=== PATIENT | female | born 1945 | race Caucasian/White ===

== ENCOUNTER → 2017-07-16 | Outpatient (CLI) | payer MEDICARE, BC ==
[~2017-07-16] MED LIST: CHEL50TA PO; ECASA81 PO; EZET1TAB8 PO; FLUO20CA12 PO; GABA300C5 PO; GLIM4TAB PO; MELO15TA20 PO; OXYB5TAB PO; PANT40TA3 PO; PERC5TAB12 PO; PRIM50TA5 PO; PROP40TA3 PO; ROSU1TAB8 PO; SITA50TA4 PO; SYNT88TA PO
[2017-07-16 10:11] LABS: AUTOMATED NEUTROPHIL # 5.8 TH/MM3 (1.8-7.7); BASOPHIL # 0.1 TH/MM3 (0-0.2); BASOPHIL % 0.9 % (0.0-2.0); EOSINOPHIL # 0.5 TH/MM3 (0-0.4); EOSINOPHIL % 5.6 % (0.0-4.0); HEMATOCRIT 37.2 % (35.0-46.0); HEMOGLOBIN 12.2 GM/DL (11.6-15.3); LYMPH % 22.9 % (9.0-44.0); MEAN CELL VOLUME 83.8 FL (80.0-100.0); MEAN CORPUSCULAR HEMOGLOBIN 27.6 PG (27.0-34.0); MEAN CORPUSCULAR HGB CONC 32.9 % (32.0-36.0); MEAN PLATELET VOLUME 9.3 FL (7.0-11.0); MONO % 5.5 % (0.0-8.0); MONOCYTE # 0.5 TH/MM3 (0-0.9); NEUT % 65.1 % (16.0-70.0); PLATELET COUNT 281 TH/MM3 (150-450); RED BLOOD COUNT 4.43 MIL/MM3 (4.00-5.30); RED CELL DISTRIBUTION WIDTH 13.5 % (11.6-17.2); WHITE BLOOD COUNT 8.9 TH/MM3 (4.0-11.0)
[2017-07-16 10:43] LABS: BICARBONATE 29.2 MEQ/L (21.0-32.0); CALCIUM 9.1 MG/DL (8.5-10.1); CREATININE 1.3 MG/DL (0.50-1.00)
[2017-07-16 11:45] LABS: BACTERIA, URINE RARE /hpf; BLOOD, URINE NEG (NEG); GLUCOSE,URINE TRACE mg/dL (NEG); HYALINE CAST, URINE 2 /lpf (RARE); KETONE, URINE NEG (NEG); MUCUS URINE FEW /lpf (OCC); NITRITE,URINE NEG (NEG); SQUAMOUS EPITHELIAL CELL URINE 6 /hpf (0-5); URINE COLOR YELLOW (YELLW/STRAW); URINE LEUKOCYTE ESTERASE MOD (NEG)
[2017-07-16 11:46] LABS: BILIRUBIN, URINE NEG (NEG)
--- NOTE | 2017-07-17 14:56 | EKG ---
Date Performed: 07/16/2017 Time Performed: 08:30:40 PTAGE: 71 years EKG: Sinus rhythm NORMAL ECG NO PREVIOUS TRACING DOCTOR: Norman Torre Interpretating Date/Time 07/17/2017 14:53:58
== END ==
LOC: CPRE 08:10
PROVIDERS: ATTEND Orthopaedic Surgery Orthopaedic Surgery of the Spine
DX: Z01.812 Encounter for preprocedural laboratory examination (principal); Z01.810 Encounter for preprocedural cardiovascular examination; M17.11 Unilateral primary osteoarthritis, right knee; R82.99 Other abnormal findings in urine
CPT/HCPCS: 36415; 80048; 81001; 85025; 87086; 93005

== ENCOUNTER 2017-07-26 09:59 | Inpatient (IN) | payer MEDICARE, BC ==
[~2017-07-26] VITALS: Ht 147.3 cm; Wt 88.5 kg
[~2017-07-26 09:59] MED LIST changes: -PERC5TAB12 PO
[2017-07-26] MEDS ORDERED: ceFAZolin 2 GM PREMIX 50 ML IV SCH (10:45)
[2017-07-26] MEDS ORDERED: CHLORHEXIDINE GLUCONATE 2 % 1 PACK (2 CLOTHS) TOPICAL PRN (10:45)
[2017-07-26] MEDS ORDERED: SODIUM CHLORID 0.9% 500 ML IV PRN (10:45)
[2017-07-26] MEDS ORDERED: LACTATED RINGER'S 1000 ML IV PRN (10:45)
[2017-07-26] MEDS ORDERED: METOPROLOL TARTRATE 25 MG TAB PO PRN (10:45)
[2017-07-26] MEDS ORDERED: CHLORHEXIDINE GLUCONATE 4% SOLN 120 ML BTL TOPICAL SCH (10:45)
[2017-07-26] MEDS ORDERED: POVIDONE IODINE 5% (ANTISEPSIS KIT) 4 APPLICATIONS EACH NARE PRN (10:45)
[2017-07-26] MEDS ORDERED: VANCOMYCIN 1000 MG/NS 250 ML (for <70 kg) IV SCH ×2 (10:45)
[2017-07-26] MEDS ORDERED: VANCOMYCIN 1 GM/200 ML PREMIX IV SCH (11:00)
[2017-07-26 11:12] VITALS: PULSE 68
[2017-07-26] MEDS ORDERED: PROPOFOL 200 MG/20 ML AMP IV ONE (12:00)
[2017-07-26] MEDS ORDERED: ePHEDrine/NS 25 MG/5 ML SYRINGE IV ONE (12:00)
[2017-07-26] MEDS ORDERED: LIDOCAINE HCL 1% PF 5 ML SYRINGE OTHER ONE (12:00)
[2017-07-26] MEDS ORDERED: SODIUM CHLORIDE 0.9% 20 ML VIAL IV ONE (12:00)
[2017-07-26] MEDS ORDERED: GENTAMICIN SULFATE 80 MG/2 ML VIAL ONE (12:14)
[2017-07-26] MEDS ORDERED: BUPIVACAINE LIPOSOME PF 1.3% 20 ML VIAL ONE (12:21)
[2017-07-26] MEDS ORDERED: MIDAZOLAM HCL 2 MG/2 ML VIAL ONE (12:21)
[2017-07-26] MEDS ORDERED: ROPIVACAINE PERI-ARTICULAR INJECTION. P-ARTICULR SCH ×5 (12:30)
[2017-07-26] MEDS ORDERED: PROPOFOL 500 MG/50 ML INJ 50 ML ONE (12:40)
[2017-07-26] MEDS ORDERED: BUPIVACAINE PF 0.75% DEX-WATER INJ 2 ML AMP ONE (12:41)
[2017-07-26] MEDS ORDERED: BUPIVACAINE HCL PF 0.5% 30 ML VIAL ONE (12:41)
[2017-07-26] MEDS ORDERED: KETAMINE HCL 500 MG/10 ML VIAL ONE (12:46)
--- NOTE | 2017-07-26 14:59 | HHI.PR ---
Immediate Post Op Note Procedure Date: Jul 26, 2017 Pre Op Diagnosis: R Knee OA Post Op Diagnosis: Same Surgeon: Lb Persaud MD Game Programer(s): Wendy Kim PA-C Procedure: R TKR Complications: None Specimen(s) removed: None Estimated blood loss: <50cc Anesthesia: General, Regional Block, Local Drains: Hemovac Patient to: PACU Patient Condition: Good Implant/Devices: SEE IMPLANT LOG (if applicable) Lb Persaud MD Jul 26, 2017 14:59
[2017-07-26] MEDS ORDERED: ALUMINUM/MAGNESIUM/SIMETH 30 ML CUP PO PRN (15:15)
[2017-07-26] MEDS ORDERED: oxyCODONE/ACETAMINOPHEN 5 MG/325 MG TAB PO PRN (15:15)
[2017-07-26] MEDS ORDERED: MORPHINE SULFATE 8 MG/ML INJ IV PUSH PRN (15:15)
[2017-07-26] MEDS ORDERED: ONDANSETRON HCL 4 MG/2 ML VIAL IVP PRN (15:15)
[2017-07-26] MEDS ORDERED: ZOLPIDEM TARTRATE 5 MG TAB PO PRN (15:15)
[2017-07-26] MEDS ORDERED: Post-op Orders (for Pharmacy) XX ONE (15:15)
[2017-07-26] MEDS ORDERED: WALKER WHEELS/F1 MIS (15:18)
--- NOTE | 2017-07-26 15:18 | HHI.FF ---
Face to Face Verification Diagnosis: (1) Osteoarthritis of right knee Physical Therapy Gait training, Transfer training, bed to chair Knee: Total knee, Protocol: Right, Full weight bearing Right LE Weight Bearing: WB as tolerated Left LE Weight Bearing: WB as tolerated Nursing RN: 3 days/week x 2 weeks Nursing: Dressing changes (clean incision with alcohol and apply dry sterile dressing ) Additional Instructions Aspirin 81 mg BID x 4 weeks DVT prop I have seen patient Ilda Toribio on 07/26/17. My clinical findings support the need for the requested home health care services because: High risk of falls I certify that my clinical findings support that this patient is homebound because: Post-op weakness Lb Persaud MD Jul 26, 2017 15:18
[2017-07-26] MEDS ORDERED: PERC5TAB12 PO (15:19)
--- NOTE | 2017-07-26 15:41 | MP ---
cc: Lb Persaud MD DATE OF OPERATION: 07/26/2017 Cc: Natalia Daly MD, FAX # PREOPERATIVE DIAGNOSIS: Right knee severe tricompartment osteoarthritis. POSTOPERATIVE DIAGNOSIS: Right knee severe tricompartment osteoarthritis. PROCEDURE PERFORMED: Right total knee arthroplasty - cemented Biomet Vanguard. SURGEON: Ernestine Persaud MD TROLLEY CAR MECHANIC: Wendy Kim PA-C TOURNIQUET TIME: 53 minutes at 250 mmHg. COMPLICATIONS: None. DRAIN: One. ANESTHESIA: General, local regional, adductor canal block, intraarticular block. PROCEDURE: My plumber's assistant, Wendy Kim PA-C, was present for the entire surgical case. She was medically necessary for the entire case because of the complexity of the case and to facilitate the performance of the procedure. The plumber's assistant at the back table was not of the skill case for this case to manipulate the instruments, e.g. multiple soft tissue retractors, trial implants and permanent implants. The patient was brought into the operating room, had satisfactory anesthesia by Dr. Isac Shaw of the Department of Anesthesia. The right lower extremity was prepped and draped in the usual sterile manner. The extremity was exsanguinated by elevation and the tourniquet inflated at 250 mmHg. Anterior exposure of the knee was made. Because of the patient's morbid obesity, great care was made to protect all pressure points. S paramedian capsulotomy was performed. The patient was found to have severe osteoarthritis involving all three compartments. The remaining portion of the medial and lateral meniscus were removed. The anterior cruciate ligament was removed. The posterior cruciate ligament was preserved. Prepatellar fat pad was surgically removed. Using the Biomet Vanguard total knee arthroplasty system, IM guide was used at the distal femur for a 7-degree valgus cut to accept a 62.5 mm femoral component. Extramedullary guide was used for the proximal tibia to accept a 75 mm. Undersurface of the patella was removed to accept a 31 mm 3-pronged patellar prosthesis. A 12 mm insert was found to have excellent stability and balance in both flexion and extension. All trial components were removed and preparation for cementing was made. The knee was injected with 100 mL of local anesthesia provided by the Department of Pharmacy. The knee was irrigated with copious amounts of sterile saline antibiotic solution. Two packages of [place] bone cement was used. First, the tibial component was cemented which is a 75 mm tibial component, followed by the femoral component which is a 62.5 mm femoral component. A 12 x 75 trial insert was used. All excess bone cement was removed. The undersurface of the patella was also cemented using a 31 mm, 3-pronged patellar prosthesis. All bone cement was removed from there. The bone cement was allowed to harden for 11 minutes up. A 12 x 75 mm polyethylene plastic component "lipped" was inserted. Appropriate locking mechanism was used to lock the polyethylene plastic onto the metallic tibial tray. The tourniquet was deflated. All bleeding was coagulated. The wound itself was dry. The wound was irrigated with 3000 mL of sterile saline antibiotic solution hooked up to an Autovac system. The wound was closed over a Hemovac drain. The fascia was closed with interrupted #2 Ti-Cron suture, the subcuticular layer with 0 Vicryl and 2-0 Vicryl and the skin was approximated with skin silvia. Sterile dressings were applied. The patient tolerated the procedure well and arrived in the recovery room in stable and satisfactory condition. MD TYSON Brown/AMADO , 02:56 PM , 03:40 PM
--- NOTE | 2017-07-26 15:49 | RADRPT ---
EXAM DATE/TIME: 07/26/2017 15:21 [facility] COMPARISON: No previous studies available for comparison. INDICATIONS : Post right knee arthroplasty MEDICAL HISTORY : Arthritis. SURGICAL HISTORY : None. ENCOUNTER: Initial ACUITY: 1 day PAIN SCORE: 0/10 LOCATION: Right Knee FINDINGS: Postsurgical features of right knee arthroplasty. Arthroplasty components are in anatomic alignment. No significant acute bony fracture. Surgical drain in place. Immediate postsurgical soft tissue featu res. CONCLUSION: 1. Status post right knee arthroplasty in anatomic alignment without significant acute bony fracture. Michele Thacker MD on July 26, 2017 at 15:47 Board Certified Radiologist. This report was verified electronically.
[2017-07-26] MEDS ORDERED: *ENALAPRILAT 1.25 MG/ML VIAL PERIprocedural Use ONLY ONE (15:50)
[2017-07-26] MEDS: LACTATED RINGER'S 1000 ML INJ 1,000 ML IV SCH (16:00)
[2017-07-26] MEDS ORDERED: cloNIDine HCL 0.1 MG TAB PO PRN (17:00)
--- NOTE | 2017-07-26 17:31 | PD.CONS ---
[facility] By Dr. Persaud Reason for Consult Medical management Primary Care Physician Natalia Daly MD Diagnoses: (1) Hypertension (2) Diabetes (3) Hyperlipidemia (4) CAD (coronary artery disease) (5) Osteoarthritis of right knee (6) Hypothyroidism History of Present Illness 71-year-old female with a medical history significant for CAD, diabetes, hypertension, hyperlipidemia admitted to the hospital for a total right knee replacement. The patient reports she has been struggling with osteoarthritis. She failed standard conservative treatment. She was getting to the point where it was very difficult for her to walk and she has been falling. We reviewed her medical history at length. She is seen in the recovery room. Currently reports feeling comfortable. Pain is controlled. No nausea or vomiting. Review of Systems Cardiovascular: DENIES: Chest pain, Palpitations Musculoskeletal: COMPLAINS OF: Joint pain Neurologic: COMPLAINS OF: Poor Balance Except as stated in HPI: all other systems reviewed are Neg Past Family Social History Allergies: Coded Allergies: hydrocodone (Verified Allergy, Unknown, ITCHING, 07/16/17) Past Medical History CAD, diabetes, hypertension, hyperlipidemia, osteoarthritis Past Surgical History Cholecystectomy Total right knee replacement Reported Medications Reported Meds & Active Scripts Active Percocet (Oxycodone-Acetaminophen) 5-325 mg Tab 1-2 Tab PO Q6H PRN Reported Rosuvastatin (Rosuvastatin Calcium) 20 Mg Tab 20 Mg PO DAILY Synthroid (Levothyroxine Sodium) 88 Mcg Tab 88 Mcg PO DAILY Fluoxetine (Fluoxetine HCl) 20 Mg Capsule 20 Mg PO BID Primidone 50 Mg Tab 50 Mg PO DAILY Meloxicam 15 Mg Tab 15 Mg PO DAILY Oxybutynin ER 24 HR (Oxybutynin Chloride) 5 Mg Tab 5 Mg PO DAILY Gabapentin 300 Mg Cap 300 Mg PO BID Pantoprazole (Pantoprazole Sodium) 40 Mg Tab 40 Mg PO DAILY Aspirin DR (Aspirin) 81 Mg Tabdr 81 Mg PO DAILY Ezetimibe 10 Mg Tab 10 Mg PO DAILY Glimepiride 4 Mg Tab 4 Mg PO BIDAC Janumet Xr (Sitagliptin-Metformin ER) 50-1,000 Mg Tab 1 Tab PO BID Propranolol (Propranolol HCl) 40 Mg Tab 40 Mg PO Q12HR Family History Reviewed and found to be noncontributory. Social History Patient does not use tobacco or alcohol. Physical Exam Vital Signs Vital Signs Date Time Temp Pulse Resp B/P (MAP) Pulse Ox O2 Delivery O2 Flow Rate FiO2 07/26/17 16:45 61 16 175/75 (108) 99 Nasal Cannula 2 07/26/17 16:30 64 16 168/68 (101) 99 Nasal Cannula 2 07/26/17 16:15 61 16 163/70 (101) 99 Nasal Cannula 2 07/26/17 16:00 60 16 162/72 (102) 99 Nasal Cannula 2 07/26/17 15:45 60 16 179/76 (110) 99 Nasal Cannula 2 07/26/17 15:15 63 18 176/77 (110) 98 Nasal Cannula 2 07/26/17 15:04 97.6 64 16 179/79 (112) 98 Nasal Cannula 3 07/26/17 11:12 68 07/26/17 11:12 94 Nasal Cannula 2 07/26/17 11:02 98.7 67 18 143/66 (91) 95 Physical Exam GENERAL: This is a well-nourished, well-developed patient, in no apparent distress. SKIN: No rashes, ecchymoses or lesions. Cool and dry. HEAD: Atraumatic. Normocephalic. No temporal or scalp tenderness. EYES: Pupils equal round and reactive. Extraocular motions intact. No scleral icterus. No injection or drainage. ENT: Nose without bleeding, purulent drainage or septal hematoma. Throat without erythema, tonsillar hypertrophy or exudate. Uvula midline. Airway patent. NECK: Trachea midline. No JVD or lymphadenopathy. Supple, nontender, no meningeal signs. CARDIOVASCULAR: Regular rate and rhythm without murmurs, gallops, or rubs. RESPIRATORY: Clear to auscultation. Breath sounds equal bilaterally. No wheezes , rales, or rhonchi. GASTROINTESTINAL: Abdomen soft, non-tender, nondistended. No hepato-splenomegaly , or palpable masses. No guarding. MUSCULOSKELETAL: Postop right knee. Immobilizer in place. Patient has a suction device in place with some blood in it. Neurovascularly intact distally at the toes. NEUROLOGICAL: Awake and alert. Cranial nerves II through XII intact. Motor and sensory grossly within normal limits. Five out of 5 muscle strength in all muscle groups. Normal speech. Imaging Last Impressions Knee X-Ray 07/26/17 1502 Signed Impressions: Service Date/Time: Wednesday, July 26, 2017 15:21 - CONCLUSION: 1. Status post right knee arthroplasty in anatomic alignment without significant acute bony fracture. Michele Thacker MD Assessment and Plan Problem List: (1) Status post right knee replacement ICD Code: Z96.651 - Presence of right artificial knee joint Plan: Continue routine postop care per orthopedics Pain control Early PT (2) CAD (coronary artery disease) ICD Code: I25.10 - Atherosclerotic heart disease of [place] coronary artery without angina pectoris Plan: Doing well. No CV complaint. Continue statin and aspirin. (3) Hyperlipidemia ICD Code: E78.5 - Hyperlipidemia, unspecified Plan: Continue statin (4) Hypertension ICD Code: I10 - Essential (primary) hypertension Plan: Currently uncontrolled. Resume home dose propranolol. Clonidine as needed. Continue to monitor (5) Osteoarthritis of right knee ICD Code: M17.11 - Unilateral primary osteoarthritis, right knee (6) Hypothyroidism ICD Code: E03.9 - Hypothyroidism, unspecified (7) Diabetes ICD Code: E11.9 - Type 2 diabetes mellitus without complications Status: Chronic Plan: Last available BMP shows a creatinine of 1.3. Continue glimepiride. Hold Janumet. Follow-up BMP in a.m. Problem Qualifiers (1) Diabetes: (2) Osteoarthritis of right knee: Qualified Codes: M17.11 - Unilateral primary osteoarthritis, right knee Anna Marie Muller MD Jul 26, 2017 17:31
[2017-07-26 18:00] VITALS: BP 123/97; PULSE 76; RESP 16; TEMP 98.3; O2SAT 76; O2SAT 96
[2017-07-26] MEDS ORDERED: DO NOT ADM ANY ANTICOAGULANT DRUGS PRN (18:15)
[2017-07-26] MEDS: oxyCODONE/ACETAMINOPHEN 5 MG/325 MG TAB PO PRN (19:10)
[2017-07-26 20:00] VITALS: O2SAT 97
[2017-07-26 20:02] VITALS: BP 140/62; PULSE 71; RESP 18; TEMP 97.5; O2SAT 97
[2017-07-26] MEDS: FLUoxetine HCL 20 MG CAP PO SCH (20:33)
[2017-07-26] MEDS: GABAPENTIN 300 MG CAP PO SCH (20:33)
[2017-07-26] MEDS: ASPIRIN EC 81 MG TABEC PO SCH (20:34)
[2017-07-26] MEDS ORDERED: NON-FORMULARY DRUG (Sitagliptin-Metformin ER (Janumet Xr) 1 TAB) PO SCH (21:00)
[2017-07-26 23:21] VITALS: BP 127/85; PULSE 77; RESP 18; TEMP 98.2; O2SAT 95
[2017-07-26] MEDS: PROPRANOLOL HCL 40 MG TAB PO SCH (23:52)
[2017-07-27 03:00] VITALS: BP 136/81; PULSE 79; RESP 18; TEMP 98.4; O2SAT 92
[2017-07-27] MEDS: LACTATED RINGER'S 1000 ML INJ 1,000 ML IV SCH ×2 (04:30→17:00)
[2017-07-27] MEDS: LEVOTHYROXINE SODIUM 88 MCG TAB PO SCH (06:37)
[2017-07-27 07:06] LABS: HEMATOCRIT 30.9 % (35.0-46.0); HEMOGLOBIN 10.2 GM/DL (11.6-15.3); MEAN CELL VOLUME 83.7 FL (80.0-100.0); MEAN CORPUSCULAR HEMOGLOBIN 27.5 PG (27.0-34.0); MEAN CORPUSCULAR HGB CONC 32.9 % (32.0-36.0); MEAN PLATELET VOLUME 8.5 FL (7.0-11.0); PLATELET COUNT 232 TH/MM3 (150-450); RED BLOOD COUNT 3.69 MIL/MM3 (4.00-5.30); RED CELL DISTRIBUTION WIDTH 13.8 % (11.6-17.2); WHITE BLOOD COUNT 9.7 TH/MM3 (4.0-11.0)
[2017-07-27 07:07] LABS: HEMATOCRIT 30.7 % (35.0-46.0); HEMOGLOBIN 10.2 GM/DL (11.6-15.3)
--- NOTE | 2017-07-27 07:13 | PD.ORT.PN ---
Subjective Subjective Remarks POD#1 R TKR NO sob;no chest pain Patient comfortable Explained to patient operative findings;answered multiple questions Objective Vitals Vital Signs Date Time Temp Pulse Resp B/P (MAP) Pulse Ox O2 Delivery O2 Flow Rate FiO2 07/26/17 23:21 98.2 77 18 127/85 (99) 95 07/26/17 20:02 97.5 71 18 140/62 (88) 97 07/26/17 20:00 97 07/26/17 18:00 96 07/26/17 18:00 98.3 76 16 123/97 (106) 76 07/26/17 17:41 97.4 72 16 150/67 (94) 99 Nasal Cannula 2 07/26/17 16:45 61 16 175/75 (108) 99 Nasal Cannula 2 07/26/17 16:30 64 16 168/68 (101) 99 Nasal Cannula 2 07/26/17 16:15 61 16 163/70 (101) 99 Nasal Cannula 2 07/26/17 16:00 60 16 162/72 (102) 99 Nasal Cannula 2 07/26/17 15:45 60 16 179/76 (110) 99 Nasal Cannula 2 07/26/17 15:15 63 18 176/77 (110) 98 Nasal Cannula 2 07/26/17 15:04 97.6 64 16 179/79 (112) 98 Nasal Cannula 3 07/26/17 11:12 68 07/26/17 11:12 94 Nasal Cannula 2 07/26/17 11:02 98.7 67 18 143/66 (91) 95 I/O 07/26/17 07/26/17 07/26/17 07/27/17 07/27/17 07/27/17 07:00 15:00 23:00 07:00 15:00 23:00 Intake Total 1200 ml 1800 ml Output Total 50 ml 100 ml Balance 1150 ml 1700 ml Intake Oral 200 ml IV Total 800 ml Other 1200 ml 800 ml Output Drainage Total 100 ml Estimated Blood Loss 50 ml # Voids 1 1 Imaging Last 24 hours Impressions Knee X-Ray 07/26/17 1502 Signed Impressions: Service Date/Time: Wednesday, July 26, 2017 15:21 - CONCLUSION: 1. Status post right knee arthroplasty in anatomic alignment without significant acute bony fracture. Michele Thacker MD Objective Remarks N/V intact No calf tenderness;neg sal's sign Assessment & Plan Assessment and Plan PT/Rehab Aspirin EC 81mg BID x 4 weeks,TEDS for DVT/PE prophylaxsis Ortho stable Possible discharge home tomorrow Lb Persaud MD Jul 27, 2017 07:13
[2017-07-27 07:24] LABS: BICARBONATE 27.2 MEQ/L (21.0-32.0); CALCIUM 8.4 MG/DL (8.5-10.1); CREATININE 1.3 MG/DL (0.50-1.00)
[2017-07-27] MEDS: GLIMEPIRIDE 4 MG TAB PO SCH ×2 (08:00→17:05)
[2017-07-27 08:20] VITALS: BP 127/60; PULSE 80; RESP 16; TEMP 99.1; O2SAT 92
[2017-07-27] MEDS: PANTOPRAZOLE SOD 40 MG DELAYED RELEASE TAB PO SCH (08:29)
[2017-07-27] MEDS: FLUoxetine HCL 20 MG CAP PO SCH ×2 (08:29→20:24)
[2017-07-27] MEDS: GABAPENTIN 300 MG CAP PO SCH ×2 (08:29→20:24)
[2017-07-27] MEDS: ATORVASTATIN 40 MG TAB PO SCH (08:29)
[2017-07-27] MEDS: EZETIMIBE 10 MG TAB PO SCH (08:29)
[2017-07-27] MEDS: PRIMIDONE 50 MG TAB PO SCH (08:29)
[2017-07-27] MEDS: ASPIRIN EC 81 MG TABEC PO SCH ×2 (08:29→20:24)
[2017-07-27] MEDS: TOLTERODINE TARTRATE 2 MG CAP LA PO SCH (08:57)
[2017-07-27] MEDS: PROPRANOLOL HCL 40 MG TAB PO SCH ×2 (08:57→20:24)
[2017-07-27] MEDS ORDERED: PT JANUMET PO SCH (09:00)
[2017-07-27] MEDS ORDERED: NON-FORMULARY DRUG (Rosuvastatin 20 MG) PO SCH (09:00)
[2017-07-27] MEDS ORDERED: PNEUMOCOCCAL POLYVALENT INJ 25 MCG/0.5 ML SYR IM ONE (09:00)
[2017-07-27] MEDS ORDERED: NON-FORMULARY DRUG (Oxybutynin ER 24 HR 5 MG) PO SCH (09:00)
[2017-07-27 12:00] VITALS: BP 98/47; PULSE 74; RESP 18; TEMP 98.4; O2SAT 93
[2017-07-27 12:59] VITALS: BP 136/60; PULSE 75; O2SAT 94
[2017-07-27 16:14] VITALS: BP 146/60; PULSE 80; RESP 17; TEMP 99.2; O2SAT 92
[2017-07-27 20:00] VITALS: BP 155/66; PULSE 88; RESP 18; TEMP 100; O2SAT 93
[2017-07-28] VITALS: BP 143/66; PULSE 87; RESP 19; TEMP 100.3; O2SAT 93
--- NOTE | 2017-07-28 00:41 | HHI.PR ---
Subjective Remarks NOTE FOR 07/27/17 Patient seen around 7 PM, She reports feeling well. Just tired. Pain is controlled. Objective Vitals Vital Signs Date Time Temp Pulse Resp B/P (MAP) Pulse Ox O2 Delivery O2 Flow Rate FiO2 07/27/17 20:00 100.0 88 18 155/66 (95) 93 07/27/17 16:14 99.2 80 17 146/60 (88) 92 07/27/17 12:59 75 136/60 (85) 94 07/27/17 12:00 98.4 74 18 98/47 (64) 93 07/27/17 09:26 18 07/27/17 08:20 99.1 80 16 127/60 (82) 92 07/27/17 03:00 98.4 79 18 136/81 (99) 92 I/O 07/27/17 07/27/17 07/27/17 07/28/17 07/28/17 07/28/17 07:00 15:00 23:00 07:00 15:00 23:00 Intake Total 480 ml 960 ml Balance 480 ml 960 ml Intake Oral 480 ml 960 ml # Voids 4 3 # Bowel Movements 0 0 Result Diagram: 07/27/17 0619 07/27/17618 Objective Remarks GENERAL: No acute distress. Appear comfortable. CARDIOVASCULAR: Regular rate and rhythm. RESPIRATORY: No accessory muscle use. Clear to auscultation. Breath sounds equal bilaterally. GASTROINTESTINAL: Abdomen soft, non-tender, nondistended. Hepatic and splenic margins not palpable. MUSCULOSKELETAL: Post op right knee dressing intact. Neurovascularly intact distally. NEUROLOGICAL: Awake and alert. No obvious cranial nerve deficits. Motor grossly within normal limits. Five out of 5 muscle strength in the arms and legs. Normal speech. PSYCHIATRIC: Appropriate mood and affect; insight and judgment normal. A/P Problem List: (1) Status post right knee replacement ICD Code: Z96.651 - Presence of right artificial knee joint Plan: Continue routine postop care per orthopedics Pain control Early PT (2) CAD (coronary artery disease) ICD Code: I25.10 - Atherosclerotic heart disease of [place] coronary artery without angina pectoris Plan: Doing well. No CV complaint. Continue statin and aspirin. (3) Hyperlipidemia ICD Code: E78.5 - Hyperlipidemia, unspecified Plan: Continue statin (4) Hypertension ICD Code: I10 - Essential (primary) hypertension Plan: Better controlled. Continue home dose propranolol. Clonidine as needed. Continue to monitor (5) Osteoarthritis of right knee ICD Code: M17.11 - Unilateral primary osteoarthritis, right knee (6) Hypothyroidism ICD Code: E03.9 - Hypothyroidism, unspecified (7) Diabetes ICD Code: E11.9 - Type 2 diabetes mellitus without complications Status: Chronic Plan: Continue home meds. (8) CKD (chronic kidney disease) stage 3, GFR 30-59 ml/min ICD Code: N18.3 - Chronic kidney disease, stage 3 (moderate) Plan: Renal function gutierrez. Discussed the need to follow up closely with PCP and have serial labs. Especially with Jenumet. Discharge Planning Per Primary. Stable from a medical standpoint. Problem Qualifiers (1) Osteoarthritis of right knee: Qualified Codes: M17.11 - Unilateral primary osteoarthritis, right knee (2) Diabetes: Anna Marie Muller MD Jul 28, 2017 00:41
[2017-07-28 04:00] VITALS: TEMP 99
[2017-07-28] MEDS: LACTATED RINGER'S 1000 ML INJ 1,000 ML IV SCH ×2 (05:30→16:56)
[2017-07-28] MEDS: GLIMEPIRIDE 4 MG TAB PO SCH ×2 (07:20→16:56)
[2017-07-28] MEDS: LEVOTHYROXINE SODIUM 88 MCG TAB PO SCH (07:20)
[2017-07-28] MEDS: oxyCODONE/ACETAMINOPHEN 5 MG/325 MG TAB PO PRN ×2 (07:21→12:50)
[2017-07-28] MEDS: FLUoxetine HCL 20 MG CAP PO SCH ×2 (07:33→21:59)
[2017-07-28] MEDS: PRIMIDONE 50 MG TAB PO SCH (07:33)
[2017-07-28] MEDS: ATORVASTATIN 40 MG TAB PO SCH (07:33)
[2017-07-28] MEDS: PROPRANOLOL HCL 40 MG TAB PO SCH ×2 (07:33→21:59)
[2017-07-28] MEDS: GABAPENTIN 300 MG CAP PO SCH ×2 (07:33→21:59)
[2017-07-28] MEDS: ASPIRIN EC 81 MG TABEC PO SCH ×2 (07:34→21:59)
[2017-07-28] MEDS: EZETIMIBE 10 MG TAB PO SCH (07:34)
[2017-07-28] MEDS: TOLTERODINE TARTRATE 2 MG CAP LA PO SCH (07:34)
[2017-07-28] MEDS: PANTOPRAZOLE SOD 40 MG DELAYED RELEASE TAB PO SCH (07:34)
[2017-07-28 07:38] VITALS: BP 174/74; PULSE 81; RESP 20; TEMP 99.3; O2SAT 92
--- NOTE | 2017-07-28 07:45 | PD.ORT.PN ---
Subjective Subjective Remarks pt complains of post op right knee pain was unable to attend therapy yesterday b/c she was sleepy/sedated after taking 2 percocet (has allergy to hydrocodone) requiring max assistance with transfers etc Objective Vitals Vital Signs Date Time Temp Pulse Resp B/P (MAP) Pulse Ox O2 Delivery O2 Flow Rate FiO2 07/28/17 07:38 99.3 81 20 174/74 (107) 92 07/28/17 04:00 99.0 07/28/17 00:00 100.3 87 19 143/66 (91) 93 07/27/17 20:00 100.0 88 18 155/66 (95) 93 07/27/17 16:14 99.2 80 17 146/60 (88) 92 07/27/17 12:59 75 136/60 (85) 94 07/27/17 12:00 98.4 74 18 98/47 (64) 93 07/27/17 09:26 18 07/27/17 08:20 99.1 80 16 127/60 (82) 92 I/O 07/27/17 07/27/17 07/27/17 07/28/17 07/28/17 07/28/17 07:00 15:00 23:00 07:00 15:00 23:00 Intake Total 480 ml 960 ml 460 ml Balance 480 ml 960 ml 460 ml Intake Oral 480 ml 960 ml 460 ml # Voids 4 3 2 # Bowel Movements 0 0 0 Result Diagram: 07/27/17 0619 07/27/17 0619 Imaging Last 24 hours Impressions Knee X-Ray 07/26/17 1502 Signed Impressions: Service Date/Time: Wednesday, July 26, 2017 15:21 - CONCLUSION: 1. Status post right knee arthroplasty in anatomic alignment without significant acute bony fracture. Michele Thacker MD Objective Remarks right knee dressing dry and intact, ice in place N/V intact No calf tenderness;neg sal's sign Assessment & Plan Assessment and Plan POD # 2 s/p R TKA PT/Rehab Aspirin EC 81mg BID x 4 weeks,TEDS for DVT/PE prophylaxsis patient will most likely not be able to go home with [facility], wrote for discharge to [facility] Wendy Kim Jul 28, 2017 07:45
[2017-07-28] MEDS ORDERED: MAGNESIUM HYDROXIDE SUSP 30 ML CUP PO ONE (10:30)
[2017-07-28] MEDS ORDERED: LACTULOSE SYRUP 20 GM/30 ML CUP PO ONE (10:30)
[2017-07-28 11:48] VITALS: BP 132/60; PULSE 72; RESP 20; TEMP 98.6; O2SAT 91
[2017-07-28 15:32] VITALS: BP 104/56; PULSE 74; RESP 20; TEMP 98.2; O2SAT 92
--- NOTE | 2017-07-28 15:52 | HHI.PR ---
Subjective Remarks Patient reports she is feeling better. More energy today. Pain is controlled. Objective Vitals Vital Signs Date Time Temp Pulse Resp B/P (MAP) Pulse Ox O2 Delivery O2 Flow Rate FiO2 07/28/17 15:32 98.2 74 20 104/56 (72) 92 07/28/17 11:48 98.6 72 20 132/60 (84) 91 07/28/17 08:23 18 07/28/17 07:38 99.3 81 20 174/74 (107) 92 07/28/17 04:00 99.0 07/28/17 00:00 100.3 87 19 143/66 (91) 93 07/27/17 20:00 100.0 88 18 155/66 (95) 93 07/27/17 16:14 99.2 80 17 146/60 (88) 92 I/O 07/27/17 07/27/17 07/27/17 07/28/17 07/28/17 07/28/17 07:00 15:00 23:00 07:00 15:00 23:00 Intake Total 480 ml 960 ml 460 ml 750 ml Balance 480 ml 960 ml 460 ml 750 ml Intake Oral 480 ml 960 ml 460 ml 750 ml # Voids 4 3 2 7 # Bowel Movements 0 0 0 Result Diagram: 07/27/1761807/27/17618 Objective Remarks GENERAL: No acute distress. Appear comfortable. CARDIOVASCULAR: Regular rate and rhythm. RESPIRATORY: No accessory muscle use. Clear to auscultation. Breath sounds equal bilaterally. GASTROINTESTINAL: Abdomen soft, non-tender, nondistended. Hepatic and splenic margins not palpable. MUSCULOSKELETAL: Post op right knee dressing intact. Neurovascularly intact distally. NEUROLOGICAL: Awake and alert. No obvious cranial nerve deficits. Motor grossly within normal limits. Five out of 5 muscle strength in the arms and legs. Normal speech. PSYCHIATRIC: Appropriate mood and affect; insight and judgment normal. A/P Problem List: (1) Status post right knee replacement ICD Code: Z96.651 - Presence of right artificial knee joint Plan: Continue routine postop care per orthopedics Pain control Early PT (2) CAD (coronary artery disease) ICD Code: I25.10 - Atherosclerotic heart disease of [place] coronary artery without angina pectoris Plan: Doing well. No CV complaint. Continue statin and aspirin. (3) Hyperlipidemia ICD Code: E78.5 - Hyperlipidemia, unspecified Plan: Continue statin (4) Hypertension ICD Code: I10 - Essential (primary) hypertension Plan: Better controlled. Continue home dose propranolol. Clonidine as needed. Continue to monitor (5) Osteoarthritis of right knee ICD Code: M17.11 - Unilateral primary osteoarthritis, right knee (6) Hypothyroidism ICD Code: E03.9 - Hypothyroidism, unspecified (7) Diabetes ICD Code: E11.9 - Type 2 diabetes mellitus without complications Status: Chronic Plan: Continue home meds. (8) CKD (chronic kidney disease) stage 3, GFR 30-59 ml/min ICD Code: N18.3 - Chronic kidney disease, stage 3 (moderate) Plan: Renal function gutierrez. Discussed the need to follow up closely with PCP and have serial labs. Especially with Jenumet. Discharge Planning Per Primary. Stable from a medical standpoint. Will sign off. Call with questions. Problem Qualifiers (1) Osteoarthritis of right knee: Qualified Codes: M17.11 - Unilateral primary osteoarthritis, right knee (2) Diabetes: Anna Marie Muller MD Jul 28, 2017 15:52
[2017-07-28 20:00] VITALS: BP 162/80; PULSE 82; RESP 18; TEMP 98.4; O2SAT 93
[2017-07-29] VITALS: BP 186/86; PULSE 86; RESP 18; TEMP 99.5; O2SAT 92
[2017-07-29 04:00] VITALS: BP 115/61; PULSE 73; RESP 18; TEMP 98.1; O2SAT 94
[2017-07-29] MEDS: LACTATED RINGER'S 1000 ML INJ 1,000 ML IV SCH (06:10)
[2017-07-29] MEDS: LEVOTHYROXINE SODIUM 88 MCG TAB PO SCH (06:13)
[2017-07-29] MEDS: GLIMEPIRIDE 4 MG TAB PO SCH (06:13)
[2017-07-29 07:54] VITALS: BP 128/59; PULSE 75; RESP 18; TEMP 97.9; O2SAT 94
[2017-07-29] MEDS: FLUoxetine HCL 20 MG CAP PO SCH (09:08)
[2017-07-29] MEDS: PANTOPRAZOLE SOD 40 MG DELAYED RELEASE TAB PO SCH (09:08)
[2017-07-29] MEDS: GABAPENTIN 300 MG CAP PO SCH (09:08)
[2017-07-29] MEDS: PROPRANOLOL HCL 40 MG TAB PO SCH (09:08)
[2017-07-29] MEDS: PRIMIDONE 50 MG TAB PO SCH (09:08)
[2017-07-29] MEDS: TOLTERODINE TARTRATE 2 MG CAP LA PO SCH (09:08)
[2017-07-29] MEDS: EZETIMIBE 10 MG TAB PO SCH (09:08)
[2017-07-29] MEDS: ASPIRIN EC 81 MG TABEC PO SCH (09:09)
[2017-07-29] MEDS: ATORVASTATIN 40 MG TAB PO SCH (09:09)
--- NOTE | 2017-07-29 11:12 | PD.ORT.PN ---
Subjective Subjective Remarks pt complains of post op right knee pain ready to be discharged to SNF today Objective Vitals Vital Signs Date Time Temp Pulse Resp B/P (MAP) Pulse Ox O2 Delivery O2 Flow Rate FiO2 07/29/17 07:54 97.9 75 18 128/59 (82) 94 07/29/17 04:00 98.1 73 18 115/61 (79) 94 07/29/17 00:00 99.5 86 18 186/86 (119) 92 07/28/17 20:00 98.4 82 18 162/80 (107) 93 07/28/17 15:32 98.2 74 20 104/56 (72) 92 07/28/17 11:48 98.6 72 20 132/60 (84) 91 I/O 07/28/17 07/28/17 07/28/17 07/29/17 07/29/17 07/29/17 07:00 15:00 23:00 07:00 15:00 23:00 Intake Total 460 ml 750 ml 420 ml Balance 460 ml 750 ml 420 ml Intake Oral 460 ml 750 ml 420 ml # Voids 2 7 4 # Bowel Movements 0 1 0 Result Diagram: 07/27/17 0619 07/27/17 0619 Imaging Last 24 hours Impressions Knee X-Ray 07/26/17 1502 Signed Impressions: Service Date/Time: Wednesday, July 26, 2017 15:21 - CONCLUSION: 1. Status post right knee arthroplasty in anatomic alignment without significant acute bony fracture. Michele Thacker MD Objective Remarks seen and examined by Dr. Lb Persaud right knee dressing dry and intact, ice in place N/V intact No calf tenderness;neg sal's sign Assessment & Plan Assessment and Plan POD # 3 s/p R TKA PT/Rehab Aspirin EC 81mg BID x 4 weeks,TEDS for DVT/PE prophylaxsis discharge to SNF today, orthopedically stable Wendy Kim Jul 29, 2017 11:11
[2017-07-29 11:32] VITALS: BP 122/58; PULSE 78; RESP 18; TEMP 97.8; O2SAT 95
--- NOTE | 2017-07-29 11:32 | HHI.PR ---
Subjective Remarks Follow up right total knee. Patient states she is doing good, no pain. She states when she takes 2 Percocet they make her loopy but she is trying to only take one. No chest pain. Objective Vitals Vital Signs Date Time Temp Pulse Resp B/P (MAP) Pulse Ox O2 Delivery O2 Flow Rate FiO2 07/29/17 07:54 97.9 75 18 128/59 (82) 94 07/29/17 04:00 98.1 73 18 115/61 (79) 94 07/29/17 00:00 99.5 86 18 186/86 (119) 92 07/28/17 20:00 98.4 82 18 162/80 (107) 93 07/28/17 15:32 98.2 74 20 104/56 (72) 92 07/28/17 11:48 98.6 72 20 132/60 (84) 91 I/O 07/28/17 07/28/17 07/28/17 07/29/17 07/29/17 07/29/17 07:00 15:00 23:00 07:00 15:00 23:00 Intake Total 460 ml 750 ml 420 ml Balance 460 ml 750 ml 420 ml Intake Oral 460 ml 750 ml 420 ml # Voids 2 7 4 # Bowel Movements 0 1 0 Result Diagram: 07/27/1761807/27/17618 Objective Remarks GENERAL: No acute distress. Appear comfortable. CARDIOVASCULAR: Regular rate and rhythm. RESPIRATORY: No accessory muscle use. Clear to auscultation. Breath sounds equal bilaterally. GASTROINTESTINAL: Abdomen soft, non-tender, nondistended. Hepatic and splenic margins not palpable. MUSCULOSKELETAL: Post op right knee dressing intact. Neurovascularly intact distally. NEUROLOGICAL: Awake and alert. No obvious cranial nerve deficits. Motor grossly within normal limits. Five out of 5 muscle strength in the arms and legs. Normal speech. PSYCHIATRIC: Appropriate mood and affect; insight and judgment normal. Medications and IVs Current Medications Medications (Trade) Dose Ordered Sig/Srinath Route Start Time Stop Time Status Last Admin (Zetia) 10 mg DAILY PO 07/27/17 09:00 07/29/17 09:08 (PROzac) 20 mg BID PO 07/26/17 21:00 07/29/17 09:08 (Neurontin) 300 mg BID PO 07/26/17 21:00 07/29/17 09:08 (Amaryl) 4 mg BIDAC PO 07/26/17 16:00 07/29/17 06:13 (Synthroid) 88 mcg DAILY@0600 PO 07/27/17 06:00 07/29/17 06:13 (Protonix) 40 mg DAILY PO 07/27/17 09:00 07/29/17 09:08 (Mysoline) 50 mg DAILY PO 07/27/17 09:00 07/29/17 09:08 (Inderal) 40 mg Q12HR PO 07/26/17 21:00 07/29/17 09:08 Lactated Ringer's 1,000 ml @ 80 mls/hr [id number] IV 07/26/17 16:00 (Morphine Inj) 5 mg Q3H PRN IV PUSH 07/26/17 15:15 (Percocet 5-325 Mg) 1 tab Q4H PRN PO 07/26/17 15:15 07/29/17 12:53 (Percocet 5-325 Mg) 2 tab Q4H PRN PO 07/26/17 15:15 07/27/17 08:04 (Zofran Inj) 4 mg Q6H PRN IVP 07/26/17 15:15 (Mag-Al Plus Susp Liq) 30 ml Q6H PRN PO 07/26/17 15:15 (Ambien) 5 mg HS PRN PO 07/26/17 15:15 07/28/17 22:02 (Ecotrin Ec) 81 mg BID PO 07/26/17 21:00 07/29/17 09:09 (Lipitor) 40 mg DAILY PO 07/27/17 09:00 07/29/17 09:09 (Detrol La) 2 mg DAILY PO 07/27/17 09:00 07/29/17 09:08 Patient Own Medication PT OWN MED: JANUMET XR ... DAILY PO 07/27/17 09:00 Future Hold (Catapres) 0.1 mg Q6H PRN PO 07/26/17 17:00 07/29/17 02:52 A/P Problem List: (1) Status post right knee replacement ICD Code: Z96.651 - Presence of right artificial knee joint (2) CAD (coronary artery disease) ICD Code: I25.10 - Atherosclerotic heart disease of [place] coronary artery without angina pectoris (3) Hyperlipidemia ICD Code: E78.5 - Hyperlipidemia, unspecified (4) Hypertension ICD Code: I10 - Essential (primary) hypertension (5) Osteoarthritis of right knee ICD Code: M17.11 - Unilateral primary osteoarthritis, right knee (6) Hypothyroidism ICD Code: E03.9 - Hypothyroidism, unspecified (7) Diabetes ICD Code: E11.9 - Type 2 diabetes mellitus without complications Status: Chronic (8) CKD (chronic kidney disease) stage 3, GFR 30-59 ml/min ICD Code: N18.3 - Chronic kidney disease, stage 3 (moderate) Assessment and Plan Status post right knee replacement -Postop care per orthopedics -Pain control -Physical therapy CAD, chronic -Continue statin and aspirin Hyperlipidemia chronic -Continue statin Hypertension, chronic controlled -Continue home propranolol, clonidine as needed, monitor vitals Diabetes, type II -Continue home medications --Accu-Cheks Chronic kidney disease, stage III -Continue to monitor renal function -Patient will need monitoring with PCP Discharge Planning Patient is possibly going to SNF today, cleared from hospitalist stand point. Problem Qualifiers (1) Osteoarthritis of right knee: Qualified Codes: M17.11 - Unilateral primary osteoarthritis, right knee (2) Diabetes: Jeimy Rocha Jul 29, 2017 11:32
[2017-07-29 11:53] LABS: BICARBONATE 27.1 MEQ/L (21.0-32.0); CALCIUM 8.6 MG/DL (8.5-10.1); CREATININE 1.09 MG/DL (0.50-1.00)
[2017-07-29] MEDS: oxyCODONE/ACETAMINOPHEN 5 MG/325 MG TAB PO PRN (12:53)
[2017-07-29 15:28] VITALS: BP 141/60; PULSE 75; RESP 18; TEMP 98; O2SAT 94
== END 2017-07-29 18:03 | DRG 470 ==
LOC: HSDI 09:59 → N06B 17:59
PROVIDERS: ADMIT Orthopaedic Surgery Orthopaedic Surgery of the Spine; ATTEND Orthopaedic Surgery Orthopaedic Surgery of the Spine
PROC: 3E0T3BZ Introduction of Anesthetic Agent into Peripheral Nerves and Plexi, Percutaneous Approach (ICD-10-PCS; 2017-07-26)
PROC: 0SRC0J9 Replacement of Right Knee Joint with Synthetic Substitute, Cemented, Open Approach (ICD-10-PCS; principal; 2017-07-26 12:57)
DX: M17.11 Unilateral primary osteoarthritis, right knee (principal); E11.22 Type 2 diabetes mellitus with diabetic chronic kidney disease; N18.3 Chronic kidney disease, stage 3 (moderate); Z68.41 Body mass index [BMI] 40.0-44.9, adult; I12.9 Hypertensive chronic kidney disease with stage 1 through stage 4 chronic kidney disease, or unspecified chronic kidney disease; I25.10 Atherosclerotic heart disease of native coronary artery without angina pectoris; E78.5 Hyperlipidemia, unspecified; E66.01 Morbid (severe) obesity due to excess calories; E03.9 Hypothyroidism, unspecified; Z23 Encounter for immunization
CPT/HCPCS: 73560; 80048; 85014; 85018; 85027; 86850; 86900; 86901; 86920; 90732; 94150; C1776; C9290; J0690; J0735; J1580; J1885; J2250; J2795; J3370; J7120; L1830